=== PATIENT | female | born 1995 | race Caucasian/White ===

== ENCOUNTER 2021-11-20 07:20 | Outpatient (REF) | payer MEDICAID, SELFPAY ==
--- NOTE | ~2021-11-20 | XR_ITS ---
EXAMINATION: KNEE X-RAY CLINICAL INFORMATION: Pain COMPARISON: None TECHNIQUE: Standing AP view of both knees and lateral and sunrise view of the left knee FINDINGS: Left: Bone alignment is normal. No fracture or dislocation is seen. The joint spaces are normal. There is no joint effusion. Standing AP view of the right knee is unremarkable. XR/XR knee standing BI IMPRESSION: Unremarkable exam.
--- NOTE | ~2021-11-20 | XR_ITS ---
EXAMINATION: KNEE X-RAY CLINICAL INFORMATION: Pain COMPARISON: None TECHNIQUE: Standing AP view of both knees and lateral and sunrise view of the left knee FINDINGS: Left: Bone alignment is normal. No fracture or dislocation is seen. The joint spaces are normal. There is no joint effusion. Standing AP view of the right knee is unremarkable. XR/XR knee LT 2V IMPRESSION: Unremarkable exam.
== END 2021-11-20 07:21 | disposition home or self-care (01) ==
LOC: HO.HOSX 07:20
PROVIDERS: Visit Provider Physician Assistant
DX: M25.562 Pain in left knee (principal)
CPT/HCPCS: 73560; 73565

== ENCOUNTER 2021-11-20 11:33 | Outpatient (REF) | payer MEDICAID, SELFPAY ==
--- NOTE | ~2021-11-20 | US_ITS ---
EXAM: Pelvic Ultrasound CLINICAL INDICATION: Right ovarian cyst COMPARISON: No similar prior imaging available for comparison at this institution. TECHNIQUE: The pelvis was evaluated using transabdominal and transvaginal imaging. FINDINGS: Retroverted uterus measures 7.5 x 3.9 x 5.7 cm in longitudinal by AP by transverse dimension. The endometrial stripe measures 1.2 cm. Fluid is noted within the endocervical canal. The left ovary measures approximately 2.6 x 2.1 x 1.2 cm and is normal. The right ovary measures approximately 3.5 x 1.9 x 2.1 cm but contains a 2.1 cm cyst. This cyst demonstrates vascular flow within a septation which measures approximately 1.5 mm in thickness. Moderate amount of free pelvic fluid, nonspecific. US/US pelvic and transvaginal IMPRESSION: -Free fluid noted within the endocervical canal. The endometrium measures 1.2 cm in thickness. Clinical correlation recommended. -Vascular flow noted within a relatively thin septation of a 2.1 cm right ovarian cyst. Clinical correlation recommended. Comparison with any prior imaging would be helpful if available. Short-term interval follow-up imaging recommended at a minimum. -Moderate free pelvic fluid, nonspecific.
== END 2021-11-20 11:34 | disposition home or self-care (01) ==
LOC: HO.US 11:33
PROVIDERS: Visit Provider Internal Medicine
DX: N83.201 Unspecified ovarian cyst, right side (principal); N83.202 Unspecified ovarian cyst, left side
CPT/HCPCS: 76830; 76856; 99202

== ENCOUNTER → 2021-11-26 12:32 | Outpatient (BNVA) | payer MEDICAID, SELFPAY | PROVIDERS: PCP Internal Medicine; Visit Provider Orthopaedic Surgery | DX: M12.20 Villonodular synovitis (pigmented), unspecified site (principal); M25.562 Pain in left knee; M06.9 Rheumatoid arthritis, unspecified | CPT/HCPCS: 99212 ==

== ENCOUNTER → 2021-12-12 11:41 | Outpatient (BNVA) | payer MEDICAID, SELFPAY | PROVIDERS: PCP Internal Medicine; Visit Provider Student in an Organized Health Care Education/Training Program | DX: M06.9 Rheumatoid arthritis, unspecified (principal); G89.29 Other chronic pain; M25.562 Pain in left knee; E03.9 Hypothyroidism, unspecified | CPT/HCPCS: 99212 ==

== ENCOUNTER 2021-12-17 13:27 | Outpatient (REF) | payer MEDICAID, SELFPAY ==
--- NOTE | ~2021-12-17 | XR_ITS ---
EXAMINATION: XR ANKLE, BILATERAL XR FEET, BILATERAL CLINICAL INFORMATION: Chronic pain. COMPARISON: None. TECHNIQUE: Right ankle 3 views. Left ankle 2 views. Right foot 3 views. Left foot 3 views. FINDINGS: Right Ankle: No fracture or dislocation. No significant joint space narrowing or marginal osteophytes. Ankle mortise is maintained. No osseous erosion. No abnormal soft tissue calcification. Left Ankle: No fracture or dislocation. No significant joint space narrowing or marginal osteophytes. Ankle mortise is maintained No osseous erosion. No abnormal soft tissue calcification. Right Foot: No fracture or dislocation. No significant joint space narrowing or marginal osteophytes. Anatomic alignment No osseous erosion. No abnormal soft tissue calcification. Left Foot: No fracture or dislocation. No significant joint space narrowing or marginal osteophytes. No osseous erosion. No abnormal soft tissue calcification. XR/XR ankle RT 2V IMPRESSION: No acute findings. No evidence of significant arthropathy.
--- NOTE | ~2021-12-17 | XR_ITS ---
EXAMINATION: XR ANKLE, BILATERAL XR FEET, BILATERAL CLINICAL INFORMATION: Chronic pain. COMPARISON: None. TECHNIQUE: Right ankle 3 views. Left ankle 2 views. Right foot 3 views. Left foot 3 views. FINDINGS: Right Ankle: No fracture or dislocation. No significant joint space narrowing or marginal osteophytes. Ankle mortise is maintained. No osseous erosion. No abnormal soft tissue calcification. Left Ankle: No fracture or dislocation. No significant joint space narrowing or marginal osteophytes. Ankle mortise is maintained No osseous erosion. No abnormal soft tissue calcification. Right Foot: No fracture or dislocation. No significant joint space narrowing or marginal osteophytes. Anatomic alignment No osseous erosion. No abnormal soft tissue calcification. Left Foot: No fracture or dislocation. No significant joint space narrowing or marginal osteophytes. No osseous erosion. No abnormal soft tissue calcification. XR/XR ankle LT 2V IMPRESSION: No acute findings. No evidence of significant arthropathy.
--- NOTE | ~2021-12-17 | XR_ITS ---
EXAMINATION: X-RAY BILATERAL HAND WRIST CLINICAL INFORMATION: Chronic pain COMPARISON: None TECHNIQUE: Bilateral hand and wrist each 4 views FINDINGS: Right hand and wrist: No fracture or dislocation. Ulna negative variance. No significant joint space narrowing or marginal osteophytes. No osseous erosion. No abnormal soft tissue calcification. Left hand and wrist: No fracture or dislocation. No significant joint space narrowing or marginal osteophytes. No osseous erosion. No abnormal soft tissue calcification. XR/XR hand wrist LT IMPRESSION: No evidence significant arthropathy. No acute findings.
--- NOTE | ~2021-12-17 | XR_ITS ---
EXAMINATION: XR ANKLE, BILATERAL XR FEET, BILATERAL CLINICAL INFORMATION: Chronic pain. COMPARISON: None. TECHNIQUE: Right ankle 3 views. Left ankle 2 views. Right foot 3 views. Left foot 3 views. FINDINGS: Right Ankle: No fracture or dislocation. No significant joint space narrowing or marginal osteophytes. Ankle mortise is maintained. No osseous erosion. No abnormal soft tissue calcification. Left Ankle: No fracture or dislocation. No significant joint space narrowing or marginal osteophytes. Ankle mortise is maintained No osseous erosion. No abnormal soft tissue calcification. Right Foot: No fracture or dislocation. No significant joint space narrowing or marginal osteophytes. Anatomic alignment No osseous erosion. No abnormal soft tissue calcification. Left Foot: No fracture or dislocation. No significant joint space narrowing or marginal osteophytes. No osseous erosion. No abnormal soft tissue calcification. XR/XR foot RT 2V IMPRESSION: No acute findings. No evidence of significant arthropathy.
--- NOTE | ~2021-12-17 | XR_ITS ---
EXAMINATION: XR ANKLE, BILATERAL XR FEET, BILATERAL CLINICAL INFORMATION: Chronic pain. COMPARISON: None. TECHNIQUE: Right ankle 3 views. Left ankle 2 views. Right foot 3 views. Left foot 3 views. FINDINGS: Right Ankle: No fracture or dislocation. No significant joint space narrowing or marginal osteophytes. Ankle mortise is maintained. No osseous erosion. No abnormal soft tissue calcification. Left Ankle: No fracture or dislocation. No significant joint space narrowing or marginal osteophytes. Ankle mortise is maintained No osseous erosion. No abnormal soft tissue calcification. Right Foot: No fracture or dislocation. No significant joint space narrowing or marginal osteophytes. Anatomic alignment No osseous erosion. No abnormal soft tissue calcification. Left Foot: No fracture or dislocation. No significant joint space narrowing or marginal osteophytes. No osseous erosion. No abnormal soft tissue calcification. XR/XR foot LT min 3V IMPRESSION: No acute findings. No evidence of significant arthropathy.
--- NOTE | ~2021-12-17 | XR_ITS ---
EXAMINATION: X-RAY BILATERAL HAND WRIST CLINICAL INFORMATION: Chronic pain COMPARISON: None TECHNIQUE: Bilateral hand and wrist each 4 views FINDINGS: Right hand and wrist: No fracture or dislocation. Ulna negative variance. No significant joint space narrowing or marginal osteophytes. No osseous erosion. No abnormal soft tissue calcification. Left hand and wrist: No fracture or dislocation. No significant joint space narrowing or marginal osteophytes. No osseous erosion. No abnormal soft tissue calcification. XR/XR hand wrist RT IMPRESSION: No evidence significant arthropathy. No acute findings.
--- NOTE | ~2021-12-17 | XR_ITS ---
EXAMINATION: X-RAY BILATERAL HIPS CLINICAL INFORMATION: Pain COMPARISON: None TECHNIQUE: X-ray bilateral hips each 2 views FINDINGS: Left hip: No fracture or dislocation. No significant joint space narrowing or marginal osteophytes. No abnormal soft tissue calcification. Right hip: No fracture or dislocation. No significant joint space narrowing or marginal osteophytes. No abnormal soft tissue calcification. XR/XR hip LT min 2V IMPRESSION: No evidence significant osseous abnormality.
--- NOTE | ~2021-12-17 | XR_ITS ---
EXAMINATION: X-RAY BILATERAL HIPS CLINICAL INFORMATION: Pain COMPARISON: None TECHNIQUE: X-ray bilateral hips each 2 views FINDINGS: Left hip: No fracture or dislocation. No significant joint space narrowing or marginal osteophytes. No abnormal soft tissue calcification. Right hip: No fracture or dislocation. No significant joint space narrowing or marginal osteophytes. No abnormal soft tissue calcification. XR/XR hip RT min 2V IMPRESSION: No evidence significant osseous abnormality.
[2021-12-17 13:53] LABS: MANUAL DIFF FLAG NO
[2021-12-17 14:07] LABS: Basophils Percent Auto 0.4 % (0-2); Eosinophils Absolute Auto 0.1 X10*3/uL (0.0-0.4); Eosinophils Percent Auto 0.9 % (0-4); Hematocrit 34.9 % (37.0-47.0); Hemoglobin 11.3 g/dl (12.0-16.0); Imm Gran Abs Auto 0.02 X10*3/uL (0.00-0.03); Imm Gran Pct Auto 0.3 % (0.0-0.4); Lymphocytes Absolute Auto 2.3 X10*3/uL (1.2-4.9); Lymphocytes Percent Auto 30.4 % (20-40); Mean Corpuscular HGB Conc 32.4 g/dl (31.0-35.0); Mean Corpuscular Hemoglobin 27.5 pg (27.0-33.0); Mean Corpuscular Volume 84.9 fL (80.0-98.0); Mean Platelet Volume 8.9 fL (9.4-12.3); Monocytes Absolute Auto 0.3 X10*3/uL (0.1-1.2); Monocytes Percent Auto 4.4 % (2-11); Neutrophils Absolute Auto 4.8 x10*3/uL (2.0-8.3); Neutrophils Percent Auto 63.6 % (45-73); Platelet Count 461 X10*3/uL (160-400); Red Blood Count 4.11 X10*6/uL (4.20-5.50); Red Cell Distribution Width 13.6 % (11.0-16.0); White Blood Count 7.5 X10*3/uL (4.8-10.8)
[2021-12-17 14:17] LABS: Estimated Average Glucose 94 mg/dL; Hemoglobin A1c % 4.9 %
[2021-12-17 14:57] LABS: Rheumatoid Factor < 15.0 IU/mL (<15.0)
[2021-12-17 15:01] LABS: Alanine Aminotransferase 10 U/L (0-31); Albumin Level 4.1 g/dL (3.5-5.0); Alkaline Phosphatase 104 U/L (39-117); Anion Gap 16 (12-20); Aspartate Amino Transferase 14 U/L (5-31); Bilirubin Total 0.3 mg/dL (0.0-1.0); Blood Urea Nitrogen 10 mg/dL (9-16); C Reactive Protein 0.74 mg/dL (< or = 0.50); Calcium 9.4 mg/dL (8.4-10.2); Carbon Dioxide 24 mmol/L (22-29); Chloride 105 mmol/L (96-108); Estimated Glomerular Filt Rate > 60; Glucose Random 96 mg/dL (60-115); Potassium 3.8 mmol/L (3.3-5.1); Sodium 141 mmol/L (135-145); Total Protein 7.7 g/dL (6.5-8.0)
[2021-12-17 15:09] LABS: Appearance Urine Cloudy; Color Urine Yellow; Glucose Urine UA Negative (Negative); Leukocyte Esterase Urine Trace (Negative); Nitrite Urine Negative (Negative); PH 5.5 (5.0-9.0); Specific Gravity - Urine 1.025 (1.005-1.025); UMIC TRIGGER UA YES; Urine Blood Moderate (2+) (Negative); Urine Ketones Negative (Negative); Urine Protein Negative (Neg-Trace)
[2021-12-17 15:16] LABS: Erythrocyte Sedimentation Rate 34 MM/HR (0-20)
[2021-12-17 15:17] LABS: Free T4 (Free Thyroxine) 1.13 ng/dL (0.71-1.85); Thyroid Stimulating Hormone 0.85 uIU/mL (0.32-4.0)
[2021-12-17 15:44] LABS: Protein/Creatinine Ratio, Ur 0.06 (<0.2); Total Protein Urine Random 10 mg/dL (<12)
[2021-12-17 16:05] LABS: Bacteria Urine 3+ (None Seen); Hyaline Casts Urine 0-2 /LPF (0-2); RBC Urine 0-2 /HPF (0-2)
[2021-12-18 07:09] LABS: HBS Num1 1.84 mIU/mL (0-7.99); HBc Num1 0.09 S/CO (0.00-0.79); HBsAGNum1 0.23 S/CO (0.00-0.99); HIV AB/AG Nonreactive (Nonreactive); HIV Num 1 0.07 S/CO (0.00-0.99); Hepatitis B Core Antibody Nonreactive (Nonreactive); Hepatitis B Surface Antigen Negative (Negative); ~HepC Num1 0.06 S/CO (0.00-0.79); ~Hepatitis B Surface Antibody NONREACTIVE (Nonreactive); ~Hepatitis C Antibody Nonreactive (Nonreactive)
[2021-12-19 05:07] LABS: Hepatitis A Antibody IgM 0.21 Index (0-0.79); ~Hepatitis A Antibody IgM Nonreactive (Nonreactive)
[2021-12-19 10:03] LABS: Cyclic Citrullinated Peptide <16 UNITS
[2021-12-20 01:47] LABS: TS Negative Control Passed; TS Panel A 0; TS Panel B 1; TS Positive Control Passed; TSpotTB Negative (Negative)
[2021-12-20 13:32] LABS: Anti Nuclear Antibody Screen NEGATIVE (NEGATIVE)
== END 2021-12-17 13:28 | disposition home or self-care (01) ==
LOC: HO.XRAY 13:27
PROVIDERS: PCP Internal Medicine; Visit Provider Student in an Organized Health Care Education/Training Program
DX: M25.551 Pain in right hip (principal); Z11.4 Encounter for screening for human immunodeficiency virus [HIV]; Z11.1 Encounter for screening for respiratory tuberculosis; Z11.59 Encounter for screening for other viral diseases; M06.9 Rheumatoid arthritis, unspecified; R80.9 Proteinuria, unspecified; R73.9 Hyperglycemia, unspecified; M79.10 Myalgia, unspecified site; E03.9 Hypothyroidism, unspecified; M79.672 Pain in left foot; M25.572 Pain in left ankle and joints of left foot; M25.541 Pain in joints of right hand; M25.571 Pain in right ankle and joints of right foot; M25.542 Pain in joints of left hand; M25.552 Pain in left hip
CPT/HCPCS: 36415; 73110; 73130; 73502; 73600; 73620; 73630; 80053; 81001; 82550; 83036; 84156; 84439; 84443; 85025; 85652; 86038; 86039; 86140; 86200; 86431; 86481; 86704; 86706; 86709; 86803; 87340; 87389

== ENCOUNTER 2021-12-26 11:31 | Day surgery (SDC) | payer MEDICAID, SELFPAY ==
[2021-12-20 15:30] VITALS: BMI 28.9
--- NOTE | 2021-12-25 08:10 | P.CONAN_ITS ---
Documented by User: Keysha Forde NP 12/25/21 08:13 HPI - Anesthesia Eval Consult details Narrative: 26yo F for Left Knee Arthroscopy with Synovectomy 10mg prednisone daily for RA PMFSH Active Problems Active Problems: All Active Problems (Updated 12/20/21 @ 15:24 by Taty Castillo RN) Internal derangement of left knee (Acute) PVNS (pigmented villonodular synovitis) (Acute) Rheumatoid arthritis (Acute) Joint pain in fingers of left hand (Acute) Pain in joints of right hand (Acute) Pain in right hip (Acute) Pain in left hip (Acute) Screening for viral disease (Acute) Encounter for testing for latent tuberculosis infection (Acute) Proteinuria (Acute) Left foot pain (Acute) Pain in right ankle and joints of right foot (Acute) Pain in left ankle and joints of left foot (Acute) Hyperglycemia (Acute) Pain in left knee (Acute) Muscle pain (Acute) Hypothyroidism (Acute) Past Medical History Medical History (Updated 12/20/21 @ 15:24 by Taty Castillo RN) Hypothyroidism Rheumatoid arthritis Family History Family History Mother Breast cancer Paternal Grandfather Diabetes Hypertension Surgical History Surgical History Hx of section Social History Social History Alcohol intake: current Alcohol intake frequency: does not drink Patient Tobacco Use Status: Never used Tobacco Current occupational status: employed Current occupation: [employer] , [employer] Meds Allergies Allergy/AdvReac Type Severity Reaction Status Date / Time No Known Allergies Allergy Verified 12/12/21 11:50 Home Medications Medication Instructions Recorded Confirmed Last Taken Type celecoxib 200 mg capsule 200 mg PO BID 11/26/21 12/20/21 Unknown History ferrous gluconate 324 mg (38 mg 324 mg PO DAILY 11/26/21 12/20/21 Unknown History iron) tablet meloxicam 7.5 mg tablet 7.5 mg PO BID 11/26/21 12/20/21 Unknown History tramadol 50 mg tablet 50 mg PO Q12H PRN Pain 11/26/21 12/20/21 Unknown History diclofenac sodium 1 % topical gel 2 g topical QID 12/12/21 12/20/21 Unknown History lidocaine 5 % topical patch 1 patch topical DAILY 12/12/21 12/20/21 Unknown History prednisone 5 mg tablet 10 mg PO DAILY 12/20/21 12/20/21 Unknown History Exam Exam Date and Time: December 25, 2021 0810 Height,Weight and Vital Signs: Height 5 ft 2 in Weight 71.668 kg Pertinent Lab Results Pertinent Lab Results: Laboratory Tests 12/17/21 12/17/21 13:50 Unknown WBC 7.5 Hgb 11.3 L Hct 34.9 L Plt Count 461 H Sodium 141 Potassium 3.8 Chloride 105 Carbon Dioxide 24 BUN 10 Creatinine 0.78 Assessment and Plan Assessment Anesthesia Assessment: Chart Reviewed Documented by User: Johnie Rhodes MD 12/26/21 18:07 [facility] Past Medical History Medical History (Updated 12/20/21 @ 15:24 by Taty Castillo RN) Hypothyroidism Rheumatoid arthritis Family History Family History Mother Breast cancer Paternal Grandfather Diabetes Hypertension Family history of problems with anesthesia: No Surgical History Surgical History Hx of section History of Problems with Anesthesia: No Social History Social History Alcohol intake: current Alcohol intake frequency: does not drink Patient Tobacco Use Status: Never used Tobacco Current occupational status: employed Current occupation: [employer] , [employer] Meds Allergies Allergy/AdvReac Type Severity Reaction Status Date / Time No Known Allergies Allergy Verified 12/12/21 11:50 Home Medications Medication Instructions Recorded Confirmed Last Taken Type celecoxib 200 mg capsule 200 mg PO BID 11/26/21 12/20/21 Unknown History ferrous gluconate 324 mg (38 mg 324 mg PO DAILY 11/26/21 12/20/21 Unknown History iron) tablet meloxicam 7.5 mg tablet 7.5 mg PO BID 11/26/21 12/20/21 Unknown History tramadol 50 mg tablet 50 mg PO Q12H PRN Pain 11/26/21 12/20/21 Unknown History diclofenac sodium 1 % topical gel 2 g topical QID 12/12/21 12/20/21 Unknown History lidocaine 5 % topical patch 1 patch topical DAILY 12/12/21 12/20/21 Unknown History prednisone 5 mg tablet 10 mg PO DAILY 12/20/21 12/20/21 Unknown History Exam Airway Mallampati Class: III TM Dist: >3cm Neck ROM: Full Loose/Missing/Broken Teeth: Yes (Braces ) Heart: S1,S2 Lungs: b/l breath sounds Assessment and Plan Assessment Anesthesia Assessment: Anesthesia Plan Discussed Final Anesthetic Review Family History of Problems with Anesthesia: No History of Problems with Anesthesia: No NPO: Yes ASA Class: II Final Preanesthetic Review: Meds/Allgs Chart Reviewed, Consent Obtained/Reviewed and Anes Risks/Benef Reviewed Patient Risk: Intermediate Procedure Risk: Intermediate Anesthetic Plan Anesthetic Plan: GA Disposition: Standard PACU
[2021-12-26] VITALS (9 sets, daily range): BP systolic 91–113; BP diastolic 56–73; PULSE 65–87; RESP 10–16; TEMP 36.1–36.6; O2SAT 95–99; BMI 29.2
[2021-12-26 12:00] LABS: UPreg QC Valid YES; Urine Pregnancy NEGATIVE (NEGATIVE)
[2021-12-26] MEDS: Lactated Ringers 1,000 ML 100 ML IVCONT (12:21)
--- NOTE | 2021-12-26 14:05 | MHC.SHP ---
Pre-Procedural Eval Section A Date of Service: 12/26/21 The patient is an INPATIENT: No Changes since office visit: Yes Patient answered all questions; No Cold of Flu in the past 2 weeks, No New Medical Problems and No Changes in Medication The History & Physical has been completed within 30 days and I have reviewed it.: Yes Section B Chief Complaint: synovitis Allergies: Allergies Allergy/AdvReac Type Severity Reaction Status Date / Time No Known Allergies Allergy Verified 12/12/21 11:50 Plan I have reviewed the history and physical and performed a pertinent physical examination on my patient. No changes have occurred unless specified.
--- NOTE | 2021-12-26 15:27 | PM.OP ---
Brief Operative Note Date of Service: 12/26/21 Pre-op diagnosis: Left knee synovial mass Post-op diagnosis: same Procedure: Arthroscopic synovectomy with excision synovial mass Implants: none Surgeon: Tomas Boyer MD Anesthesia: GETA and local Was an Breakfast Attendant used for this Procedure?: No Estimated blood loss (mL): 1 Tourniquet time (min): 30 IV fluids (mL): 600 Pathology: other Condition: stable Disposition: PACU
--- NOTE | 2021-12-26 15:38 | P.OP_ITS ---
Operative Note Operative Note Date of Service: 12/26/21 Narrative: Date of Service: 12/26/21 Pre-op diagnosis: Left knee synovial mass Post-op diagnosis: same Procedure: Arthroscopic synovectomy with excision synovial mass Implants: none Surgeon: Tomas Boyer MD Anesthesia: GETA and local Was an Winding Lathe Operator used for this Procedure?: No Estimated blood loss (mL): 1 Tourniquet time (min): 30 IV fluids (mL): 600 Pathology: other Condition: stable Disposition: PACU Procedure in detail: Patient was brought to the operating room placed supine on the arthroscopic table and prepped and draped in standard sterile fashion. A time-out was called to identify proper site proper procedure proper surgeon and IV antibiotics per weight were administered. I began by exsanguinating the limb and insufflating tourniquet to 300 mm Hg. Then made a standard anterolateral stab incision. THe knee was insufflated with water and 30 degree arthroscope was placed. There was a normal patella and the suprapatellar pouch was notable for an synovial nodule adhered to the anterolateral femoral soft tissue just proximal to the trochlea. I descended into the medial compartment where I made my medial portal under direct visualization. There was a normal medial, lateral compartment and the notch was normal. I returned the the suprapatellar puch and then removed the synovial mass with a grasper via the anterolateral portal. This was adhered to the anterolateral femoral soft tissues. This was sent for pathology. The remaining synovium was unimpressive and there was no additional abundance of synovium or evidence of synovitis. I did also biopsy some of the synovial tissue. Once I was happy that the synovial nodule was completely removed I cauterized the synovial bed. I then removed all instrumentation and closed the portals with nylon. 25 mL of 2% Marcaine with epinephrine was injected into the joint and the surrounding soft tissues. Patient was then placed in sterile dressing extubated brought recovery room stable condition. There were no known complications.
[2021-12-26] MEDS: oxyCODONE HCl Immed Release 5 MG TABLET PO (16:04)
[2021-12-26] MEDS: Acetaminophen 325 MG TABLET 650 MG PO (16:04)
[2021-12-26] MEDS: fentaNYL citrate/PF 100 MCG/2 ML VIAL 25 MCG IVPUSH (16:05)
== END 2021-12-26 17:19 | disposition home or self-care (01) ==
PROVIDERS: Nurse Practitioner; PCP Internal Medicine; Visit Provider Orthopaedic Surgery
PROC: (CPT 29870; principal; 2021-12-26 13:30)
DX: M12.20 Villonodular synovitis (pigmented), unspecified site (principal); D48.1 Neoplasm of uncertain behavior of connective and other soft tissue; M06.9 Rheumatoid arthritis, unspecified; R26.89 Other abnormalities of gait and mobility
CPT/HCPCS: 29875; 81025; 88304; 88305; A4649; J0171; J0690; J1885; J2250; J2795; J3010

== ENCOUNTER 2021-12-31 07:26 | Outpatient (RCR) | payer MEDICAID, SELFPAY | END 2022-02-25 14:15 | disposition home or self-care (01) | LOC: HO.PT 07:26 | PROVIDERS: PCP Internal Medicine; Visit Provider Physician Assistant | DX: M12.20 Villonodular synovitis (pigmented), unspecified site (principal) ==

== ENCOUNTER 2022-02-01 08:57 | Outpatient (REF) | payer OTHER, MEDICAID, SELFPAY | END 2022-02-01 08:58 | disposition home or self-care (01) | LOC: HO.SH 08:57 | PROVIDERS: Visit Provider Internal Medicine | DX: Z01.118 Encounter for examination of ears and hearing with other abnormal findings (principal); H91.91 Unspecified hearing loss, right ear | CPT/HCPCS: 92557; 92567; 92587 ==

== ENCOUNTER 2022-02-07 09:01 | Outpatient (REF) | payer OTHER, MEDICAID, SELFPAY ==
[2022-02-07 13:51] LABS: CT PCR NOT DETECTED (Not Detect.); NG PCR NOT DETECTED (Not Detect.)
[2022-02-08 13:29] LABS: BV Int Neg Control Negative (Negative); BV Int Pos Control Positive (Positive)
== END 2022-02-07 09:02 | disposition home or self-care (01) ==
LOC: HO.LNP 09:01
PROVIDERS: Visit Provider Advanced Practice Midwife
DX: Z01.419 Encounter for gynecological examination (general) (routine) without abnormal findings (principal)
CPT/HCPCS: 87480; 87491; 87510; 87591; 87660; 88142

== ENCOUNTER → 2022-03-04 10:52 | Outpatient (BNVA) | payer OTHER, MEDICAID, SELFPAY | PROVIDERS: Visit Provider Advanced Practice Midwife | DX: Z32.01 Encounter for pregnancy test, result positive (principal) | CPT/HCPCS: 81025 ==

== ENCOUNTER 2022-03-20 10:45 | Outpatient (REF) | payer OTHER, MEDICAID, SELFPAY ==
--- NOTE | ~2022-03-20 | US_ITS ---
EXAMINATION: US OBSTETRICAL ULTRASOUND CLINICAL INFORMATION: Follow-up complex cyst. Patient is now . COMPARISON: Ultrasound pelvis 11/20/2021. LMP: 02/03/2022. Gestational age by maternal dates is 6 weeks 3 days. Estimated date of delivery by maternal dates is 11/10/2022. TECHNIQUE: Transabdominal imaging of pelvis is performed. FINDINGS: There is a single intrauterine gestational sac with visible yolk sac, embryo/fetus, and cardiac activity. There is no significant subchorionic hemorrhage or hematoma. HR: 116 beats per minute. CRL (crown rump length): 0.3 cm (6 weeks and 1 day +/- 4 days). MARYELLEN (estimated date of delivery): 11/12/2022 +/- 4 days. MATERNAL ADNEXA: The right maternal ovary measures 2.4 x 1.3 x 1.3 cm. It appears unremarkable. The left maternal ovary measures 3.6 x 2.1 x 2.4 cm. There is an anechoic cyst measuring 2.5 x 1.7 x 2.0 cm. There is no significant maternal adnexal mass. There is a small amount of free fluid in the cul-de-sac. US/US OB pelvic and transvaginal IMPRESSION: 1. Single intrauterine gestational sac and pole with ultrasound gestational age of 6 weeks 1 day +/- 4 days. 2. Estimated date of delivery is 11/12/2022 +/- 4 days. 3. There is minimal free fluid in the internal cul-de-sac. 4. Simple anechoic cyst left ovary.
== END 2022-03-20 10:46 | disposition home or self-care (01) ==
LOC: HO.US 10:45
PROVIDERS: Visit Provider Advanced Practice Midwife
DX: O26.891 Other specified pregnancy related conditions, first trimester (principal); N83.291 Other ovarian cyst, right side; Z3A.01 Less than 8 weeks gestation of pregnancy
CPT/HCPCS: 76801; 76817; 76830; 76856